=== PATIENT | female | born 1955 | race Caucasian/White ===

== ENCOUNTER 2016-07-12 12:17 | Emergency (ER) | payer BC ==
[2016-07-12 12:48] VITALS: BP 142/79
[2016-07-12] MEDS ORDERED: Tetan/Diph/Pertus SYR(Tdap)* 0.5 ML SYR(BOOSTRIX) use SYR IM ONE (12:56)
[2016-07-12] MEDS ORDERED: Lidocaine 1% MPF* 2 ML VIAL ONE (13:18)
[2016-07-12] MEDS ORDERED: Lidocaine 2% PF * 5 ML VIAL ONE (13:34)
--- NOTE | 2016-07-12 14:53 | RAD ---
HISTORY: Laceration to second digit of the right hand COMPARISONS: None VIEWS: 3, Frontal, lateral, and oblique views of the second digit of the right hand FINDINGS: BONE DENSITY: Normal. BONES: There is no displaced fracture. 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 ALIGNMENT: There is no dislocation. SOFT TISSUES: Unremarkable. OTHER FINDINGS: None. IMPRESSION: NO ACUTE OSSEOUS INJURY. IF SYMPTOMS PERSIST, RECOMMEND REPEAT IMAGING.
--- NOTE | 2016-08-02 08:17 | UC ---
I, Oh,Soohindio, scribed for Lian Hollis DO on 07/12/16 at 1331 . Upper Extremity HPI - HPI Summary HPI Summary: This 61 y/o female presents to [facility] for RUE #2 digit laceration since 1100 am this morning. Pt's unintentionally lacerated her finger with pruning villa. She decided to come in today when she became concerned with how deep the laceration was. The laceration is currently bandaged with mild to moderate amount of bleeding noted at the time of initial evaluation. Negative lightheadedness or dizziness. Pt denies any PMHx of HTN, DM, or any cardiac dz, and she also denies being on blood thinner. Pt is currently on Prempro and Zoloft. Pt took Oxycodone present at her home before coming in today for pain control. Pt reports positive cardiac dz in FHx to mother who is currently 96 y/ o and has pacemaker in place. Pt needs tetanus. - History of Current Complaint Chief Complaint: UCUpperExtremity Stated Complaint: FINGER LAC Time Seen by Provider: 07/12/16 13:16 Hx Obtained From: Patient ?: No Onset/Duration: Sudden Onset, Still Present Severity Initially: Moderate Severity Currently: Moderate Location Of Pain: Is Discrete @ - RUE #2 digit Aggravating Factor(s): Movement Alleviating Factor(s): Rest Associated Signs And Symptoms: Positive: Negative. Negative: Swelling, Redness , Bruising, Fever, Weakness, Numbness/Tingling Related History: Dominant Hand Right - Allergies/Home Medications Allergies/Adverse Reactions: Allergies Allergy/AdvReac Type Severity Reaction Status Date / Time No Known Allergies Allergy Verified 10/05/15 16:36 PMH/Surg Hx/FS Hx/Imm Hx Cardiovascular History Of: Denies: Hypertension, Pacemaker/ICD Psychological History Of: Reports: Depression Cancer History Of: Denies: Breast Cancer - Surgical History Surgical History: Yes Surgery Procedure, Year, and Place: LEFT HAND, 1984, [facility]. - Family History Known Family History: Positive: Cardiac Disease - mother who is currently on 96 y/o and has pacemaker Negative: Hypertension, Diabetes - Social History Occupation: Retired Lives: With Family Alcohol Use: Weekly Alcohol Amount: 3 glasses of wine/week Substance Use Type: None Smoking Status (MU): Never Smoked Tobacco Have You Smoked in the Last Year: No Review of Systems Constitutional: Negative Skin: Other - laceration on RUE #2 digit Eyes: Negative ENT: Negative Respiratory: Negative Cardiovascular: Negative Gastrointestinal: Negative Motor: Negative Neurovascular: Negative Musculoskeletal: Negative Neurological: Negative Psychological: Negative All Other Systems Reviewed And Are Negative: Yes Physical Exam Triage Information Reviewed: Yes Appearance: Well-Appearing, No Pain Distress, Well-Nourished Vital Signs: Initial Vital Signs Temp 98.1 F 07/12/16 12:45 Pulse 56 07/12/16 12:45 Resp 16 07/12/16 12:45 BP 142/79 07/12/16 12:45 Pulse Ox 98 07/12/16 12:45 Vital Signs Reviewed: Yes Eyes: Positive: Conjunctiva Clear. Negative: Discharge ENT: Positive: Hearing grossly normal. Negative: Muffled/hoarse voice Neck exam: Normal Neck: Positive: Supple Respiratory: Positive: Lungs clear, Normal breath sounds, No respiratory distress, No accessory muscle use Cardiovascular: Positive: RRR, No Murmur Musculoskeletal Exam: Normal Neurological: Positive: Alert, Muscle Tone Normal Psychological Exam: Normal Skin: Positive: Other - laceration on RUE #2 digit. Procedures - Laceration/Wound Repair 1 Location: upper extremity - RUE #2 digit Description: Linear Anesthesia: Digital, 1.0% Betadine Prep?: Yes Irrigated w/ Saline (ccs): 30 Laceration/Wound Explored: clean, no foreign body removed Closure: Single Layer Suture Type: Nylon Number of Sutures: 8 Layer Closure?: No Sterile Dressing Applied?: Yes Diagnostics - Radiology RUE finger Xray Interpretation: No Acute Changes Radiology Interpretation Completed By: Radiologist Re-Evaluation - Re-Evaluation First Eval Re-Evaluation Time: 14:47 Comment: MD in room to update on plan of care involving discharge and outpatient follow up. Pt is agreeable at this time. Upper Extremity Course/Dx - Differential Dx/Diagnosis Differential Diagnosis/HQI/PQRI: Laceration - abrasion, Other Provider Diagnoses: Finger laceration Discharge - Discharge Plan Condition: Stable Disposition: HOME Patient Education Materials: Diphtheria/Acellular Pertussis/Tetanus Booster Vaccine (Tdap) (Injection), Finger Laceration (ED) Referrals: Jessica Gao MD [Primary Care Provider] - If Needed () Theo Torres MD [Medical Doctor] - (Please be seen for suture removal in 7- 10 days. If you can not get in to see him, you can return here.) The documentation as recorded by the scribe, Soraya Manrique accurately reflects the service I personally performed and the decisions made by me, Lian Hollis DO.
== END 2016-07-12 14:51 | disposition home or self-care (01) ==
LOC: UCEAST 12:17
DX: S61.210A Laceration without foreign body of right index finger without damage to nail, initial encounter (principal); W27.8XXA Contact with other nonpowered hand tool, initial encounter; Y93.9 Activity, unspecified; Y92.9 Unspecified place or not applicable; Z23 Encounter for immunization
CPT/HCPCS: 12001; 73140; 90471; 90715; 99211; G0463

== ENCOUNTER 2016-09-12 06:10 | Inpatient (IN) | payer BC ==
[2016-09-12] MEDS ORDERED: Ondansetron INJ* 2 MG/ML VIAL ONE (07:01)
[2016-09-12] MEDS ORDERED: Ondansetron INJ* 2 MG/ML VIAL IV ONE (07:04)
[2016-09-12] MEDS ORDERED: NS 0.9% 1000 ML*IV.FLUID IV ONE (07:04)
[2016-09-12] MEDS ORDERED: NS 0.9% 1000 ML* 1,000 ML IV ONE (07:24)
[2016-09-12] MEDS ORDERED: Morphine INJ* 4 MG/ML 1 ML SYRINGE IV ONE (07:24)
[2016-09-12] MEDS ORDERED: Pantoprazole IV* 40 MG IV ONE (07:24)
[2016-09-12 07:35] LABS: Hematocrit 46 % (35-47); Hemoglobin 15.3 g/dl (12.0-16.0); Mean Corpuscular HGB Conc 33 g/dl (31-36); Mean Corpuscular Hemoglobin 29 pg (27-31); Mean Corpuscular Volume 86 fL (80-97); Mean Platelet Volume 10 um3 (7.4-10.4); Red Blood Count 5.34 10^6/ul (4.0-5.4); Red Cell Distribution Width 14 % (10.5-15); White Blood Count 14.2 10^3/ul (3.5-10.8)
[2016-09-12 07:46] LABS: ALT 21 U/L (7-52); AST 31 U/L (13-39); Albumin 4.7 g/dL (3.2-5.2); Alkaline Phosphatase 86 U/L (34-104); Amylase 59 U/L (29-103); Anion Gap 16 mmol/L (2-11); BUN/Creatinine Ratio 23.8 (8-20); Blood Urea Nitrogen 24 mg/dL (6-24); C Reactive Protein 9.08 mg/L (< 5.00); CO2 Carbon Dioxide 20 mmol/L (22-32); Calcium 10.2 mg/dL (8.6-10.3); Chloride 102 mmol/L (101-111); EGFR African American 71.4 (>60); EGFR Non-African American 55.5 (>60); Globulin 3.8 g/dL (2-4); Glucose 154 mg/dL (70-100); Lipase < 10 U/L (11.0-82.0); Magnesium 1.8 mg/dL (1.9-2.7); Potassium 3.2 mmol/L (3.5-5.0); Sodium 138 mmol/L (133-145); Total Protein 8.5 g/dL (6.4-8.9)
[2016-09-12 07:54] LABS: Troponin I 0.56 ng/mL (<0.04)
[2016-09-12] MEDS ORDERED: Aspirin TAB* 325 MG ONE (08:17)
[2016-09-12] MEDS ORDERED: Potassium Chlor TAB* 20 MEQ TAB.ER PO ONE (08:23)
[2016-09-12] MEDS ORDERED: Aspirin TAB* 325 MG PO ONE (08:48)
--- NOTE | 2016-09-12 08:54 | RAD ---
Indication: Epigastric pain. Real-time sonography of the right upper quadrant was performed. The liver is normal in size measuring 18 cm in length. No focal lesions are noted. No intrahepatic ductal dilatation is noted. The common duct measures up to 8 mm. The gallbladder demonstrates no gallstones, pericholecystic fluid or wall thickening. The right kidney measures 10.7 x 5.2 x 4.1 cm with no hydronephrosis. The pancreas head, neck and proximal body demonstrates no mass or pancreatic ductal dilatation. IMPRESSION: No evidence of cholelithiasis or biliary duct dilatation is noted.
[2016-09-12 08:56] LABS: Creatine Kinase 419 U/L (10-223)
--- NOTE | 2016-09-12 09:03 | CONSULT ---
Consult Consult: Surgery Consult Asked by Dr. Peck to evaluate a pt. with abd. pain. Ms. Collins is a 61 y.o. female who reports she began to feel nausea and epigastric pain 2 days ago. The pain has occured before to a lesser degree and, as in the past, this time seemed to be triggered by fatty foods. The pain subsided for a while but when it resumed it was associated with vomiting which was new. She describes the pain as stabbing and the nausea as unrelenting. She denies fever, but had some chills. She denies dysuria or vaginal discharge. She has not noticed any changed in her usually irregular bowel habits. She denies changes in the color of her urine or stool. She denies radiation of the pain. She has had extensive w/u in the past with neg finding. Most recently was evaluated a year ago. PMHx: denies Meds: zoloft and prempro NKDA ROS: neg. SH: neg. tob., occ. EtOH, neg. IVDA FH: sister and aunt had breast cancer; no FH gall bladder problems PE: general: WDWN female in NAD Vital Signs 09/12/16 09/12/16 09/12/16 06:15 07:40 07:49 Temperature 96.9 F Pulse Rate 62 Respiratory 18 20 Rate Blood Pressure 159/69 153/101 (mmHg) O2 Sat by Pulse 100 Oximetry 09/12/16 09/12/16 07:50 08:00 Temperature Pulse Rate 70 69 Respiratory Rate Blood Pressure 172/79 (mmHg) O2 Sat by Pulse 100 100 Oximetry HEENT: anicteric sclerae, dry oral mucosa, neg. cervical adenopathy lungs: clear to ausc. heart: reg. abd: diminished BS, soft, tender in epigastrium and RUQ without guarding or rebound, no masses felt. ext: neg. cyanosis, edema Laboratory Results - last 24 hr 09/12/16 09/12/16 09/12/16 06:55 06:55 06:55 WBC 14.2 H RBC 5.34 Hgb 15.3 Hct 46 MCV 86 MCH 29 MCHC 33 RDW 14 Plt Count 255 MPV 10 Neut % (Auto) 91.8 H Lymph % (Auto) 5.8 L Fleming % (Auto) 2.2 Eos % (Auto) 0 Baso % (Auto) 0.2 Absolute Neuts (auto) 13.0 H Absolute Lymphs (auto) 0.8 L Absolute Monos (auto) 0.3 Absolute Eos (auto) 0 Absolute Basos (auto) 0 Absolute Nucleated RBC 0.01 Nucleated RBC % 0 INR (Anticoag Therapy) 0.90 APTT 26.1 Sodium 138 Potassium 3.2 L Chloride 102 Carbon Dioxide 20 L Anion Gap 16 H BUN 24 Creatinine 1.01 H Est GFR ( Amer) 71.4 Est GFR (Non-Af Amer) 55.5 BUN/Creatinine Ratio 23.8 H Glucose 154 H Lactic Acid Calcium 10.2 Magnesium 1.8 L Total Bilirubin 0.80 AST 31 ALT 21 Alkaline Phosphatase 86 Total Creatine Kinase 419 H Troponin I 0.56 H* C-Reactive Protein 9.08 H Total Protein 8.5 Albumin 4.7 Globulin 3.8 Albumin/Globulin Ratio 1.2 Amylase 59 Lipase < 10 L 09/12/16 06:55 WBC RBC Hgb Hct MCV MCH MCHC RDW Plt Count MPV Neut % (Auto) Lymph % (Auto) Fleming % (Auto) Eos % (Auto) Baso % (Auto) Absolute Neuts (auto) Absolute Lymphs (auto) Absolute Monos (auto) Absolute Eos (auto) Absolute Basos (auto) Absolute Nucleated RBC Nucleated RBC % INR (Anticoag Therapy) APTT Sodium Potassium Chloride Carbon Dioxide Anion Gap BUN Creatinine Est GFR ( Amer) Est GFR (Non-Af Amer) BUN/Creatinine Ratio Glucose Lactic Acid 3.5 H* Calcium Magnesium Total Bilirubin AST ALT Alkaline Phosphatase Total Creatine Kinase Troponin I C-Reactive Protein Total Protein Albumin Globulin Albumin/Globulin Ratio Amylase Lipase A/P: Possible biliary colic, but agree that other sources of epigastric pain need to be evaluated too. Sono will help differentiate. Will follow Julius
[2016-09-12 09:17] LABS: Troponin I 0.63 ng/mL (<0.04)
--- NOTE | 2016-09-12 10:18 | RAD ---
Indication: Epigastric pain. Single frontal view of the chest performed at 0730 hours was reviewed. Comparison is made with previous exam dated November 14, 2015. No mediastinal shift is noted. Heart is of normal size and configuration. Lung maxwell appear clear. IMPRESSION: NO ACTIVE CARDIOPULMONARY DISEASE IS NOTED.
[2016-09-12] MEDS ORDERED: Heparin(*) 1000 UNIT/ML 10 ML VIAL CATH LAB IV ONE (11:11)
[2016-09-12] MEDS ORDERED: VERAPAMIL 2.5 MG/ML 4 ML VIAL ONE (11:11)
[2016-09-12] MEDS ORDERED: Midazolam* 1 MG/ML 5 ML VIAL (5 MG) ONE (11:11)
[2016-09-12] MEDS ORDERED: fentaNYL* 50 MCG/ML 2 ML VIAL (100 MCG VIAL) ONE (11:11)
[2016-09-12] MEDS ORDERED: Heparin 2 UNITS/ML IVPREMIX* 2,000 ML IV ONE (11:12)
[2016-09-12] MEDS ORDERED: Lidocaine 1% INJ* 10 MG/ML 30 ML SDV ONE (11:12)
[2016-09-12] MEDS ORDERED: nitroGLYCERIN DRIP* 250 ML ONE (11:12)
[2016-09-12] MEDS ORDERED: Iohexol 350 (CONTRAST) 200 ML MDV IV ONE (11:12)
[2016-09-12] MEDS ORDERED: NS 0.9% 1000 ML* 1,000 ML IV SCH ×2 (11:15→12:30)
--- NOTE | 2016-09-12 13:04 | CONSULT ---
Subjective Date of Service: 09/12/16 Interval History: 09/12/[address] Gao CC: Epigastric pain Reason for consult: Elevated troponin HPI Aleshia Collins is a 61 year old woman with a history of HTN had been on hctz in the past but stopped due to side effect (dizziness), dyslipidemia had been on a statin in the past. No prior history of [place]/CAD, CHF, valvular abnormalities or arrhythmias. No DM, family hx of CAD or tobacco use. Has had epigastric pain in the past intermittent. woke up with epigastric discomfort nausea/ vomiting lasted 8 hours. Then resolved. Woke up yesterday and felt fine. Had a light lunch. Walked some as she usually does daily without symptoms. Woke up this AM with epigastric pain, nausea, bile vomit. No radiation of pain, was partially reproducible but received morphine prior to when I arrived and currently pain free and not reproducible. No dyspnea, edema, orthopnea, pnd, lightheadedness, palpitations or syncope. US gallbladder reportedly normal. Cardiac enzymes elevated. Her Dr. Collins, orthopaedist is at bedside. Has received 325 mg PO aspirin Pmhx: HTN dyslipidemia Allergies: hctz causes dizziness one statin joint aches Soc Hx: no tobacco use, Fam Hx: mother scarlet fever, pacemaker is age 96 Medications Active Medications: Enoxaparin Sodium (Lovenox(*)) 40 mg SUBCUT Q24H [facility] Sodium Chloride (Ns 0.9% 1000 Ml*) 1,000 mls @ 100 mls/hr IV PER RATE BRET Sodium Chloride (Ns 0.9% 1000 Ml*) 1,000 mls @ 125 mls/hr IV .per rate [facility] Stop: 09/12/16 17:29 Pantoprazole Sodium (Protonix Iv*) 40 mg IV DAILY BRET Sertraline HCl (Zoloft*) 50 mg PO DAILY [facility] Home Medications: Estrogens/Medroxypr 0.625(NF) [Prempro] 1 tab PO DAILY 05/25/13 [History Confirmed 09/12/16] Sertraline HCl 50 mg PO DAILY 05/25/13 [History Confirmed 09/12/16] Review of Systems - Review of Systems Constitutional Symptoms: Negative: Weight Gain, Weight Loss, Weakness, Fatigue, Fever, Night Sweats Dermatology: Negative: Rash, Skin Lesions HEENT: Negative: Change in Hearing, Vertigo Eyes: Negative: Change in Vision, Double Vision Thyroid: Negative: Cold Intolerance, Heat Intolerance, Sweatiness, Tremor, Frequent Defecation, Constipation, Palpitations, Primary Hypothyroidism, Primary Hyperthyroidism, Weight Loss, Weight Gain, Change in Skin/Hair Pulmonary: Negative: Cough, Sputum, Hemoptysis, Wheezing, Respiratory Distress, Shortness of Breath, COPD Cardiology: Negative: Chest Pain, Shortness of Breath, Palpitations, Swelling of Ankles, Peripheral Vascular Dis, Edema, Faintness, Syncope, Orthopnea Gastroenterology: Positive: Abdominal Pain, Nausea, Vomiting, Indigestion Negative: Anorexia, Difficulty Swallowing, Heartburn, Constipation, Diarrhea Genital - Urinary: Negative: Dysuria, Hematuria, Polyuria Musculoskeletal: Negative: Joint Pain, Joint Stiffness, Arthritis, Osteoporosis, Low Back Pain Endocrinology: Negative: Thyroid Problems, Obesity, Diabetes, Hyperglycemia, Hypoglycemia, Polydipsia, Polyuria Hematologic/Lymphatic: Negative: Anemia, Easy Brusing, Hx Leukemia Neurology: Negative: Diplopia, Dizziness, Change in Balancing, Change in Coordination, Change in Memory, Change in Speech, Change in Sphincter Function Psychiatry: Negative: Adhedonia, Tearfulness, Unusual Fatigue, Hypomania, Eating Disorders Allergic/Immunologic: Negative: Hx Environmental Allergies, Hx Seasonal Allergies, Hx HIV, Immunocompromise Review of Systems Statement: All other review of systems negative, unless stated above. Objective Vital Signs: Temp Pulse Resp BP Pulse Ox 96.9 F 81 14 138/85 99 09/12/16 06:15 09/12/16 11:03 09/12/16 11:03 09/12/16 11:02 09/12/16 11:03 Appearance: nad, very pleasant Ears/Nose/Mouth/Throat: Clear Oropharnyx, Mucous Membranes Moist Neck: NL Appearance and Movements; NL JVP, Trachea Midline Respiratory: Symmetrical Chest Expansion and Respiratory Effort, Clear to Auscultation Cardiovascular: NL Sounds; No Murmurs; No JVD, RRR, No Edema Abdominal: NL Sounds; No Tenderness; No Distention Extremities: No Edema Skin: No Rash or Ulcers Neurological: Alert and Oriented x 3 Laboratory Results: 09/12/16 06:55 09/12/16 06:55 INR (Anticoag Therapy) 0.90 (0.89-1.11) 09/12/16 06:55 APTT 26.1 seconds (26.0-36.3) 09/12/16 06:55 Total Bilirubin 0.80 mg/dL (0.2-1.0) 09/12/16 06:55 AST 31 U/L (13-39) 09/12/16 06:55 ALT 21 U/L (7-52) 09/12/16 06:55 Alkaline Phosphatase 86 U/L (34-104) 09/12/16 06:55 CK-MB (CK-2) 11.9 ng/mL (0.6-6.3) H 09/12/16 08:42 Total Protein 8.5 g/dL (6.4-8.9) 09/12/16 06:55 Albumin 4.7 g/dL (3.2-5.2) 09/12/16 06:55 Globulin 3.8 g/dL (2-4) 09/12/16 06:55 Albumin/Globulin Ratio 1.2 (1-3) 09/12/16 06:55 09/12/16 09/12/16 06:55 08:42 Troponin I 0.56 H* 0.63 H* EKG Data: EKG 09/12/2016: Sinus rhythm 64 bpm, LAFB (unchanged from 09/2015) Assessment/Plan In summary, Aleshia Collins presents with an uncertain clinical presentation of epigastric pain, elevated troponin level and an abnormal baseline ekg without dynamic changes. US gallbladder reportedly normal. TTE limited bedside performed by myself mild LVH, normal LV size and function LVEF 55-60% with no wall motion abnormalities noted. - I think options are either a stress test or cardiac catheterization to further clarify ? cardiac etiology of presentation. After further discussing with Dr. Moreno, will plan for cardiac catheterization today. - Further recommendations pending test Thank you for allowing me to participate in the cardiovascular care of this patient. Please do not hesitate to contact me with questions or concerns.
[2016-09-12 14:58] LABS: Troponin I 0.55 ng/mL (<0.04)
[2016-09-12] MEDS ORDERED: Enoxaparin(*) 40 MG/0.4 ML SYR SUBCUT SCH (15:00)
[2016-09-12] MEDS ORDERED: CMC:Rosuvastatin (NF) 20 MG TAB PO SCH (17:00)
--- NOTE | 2016-09-12 18:01 | ED ---
Vladislav Escalante Billy, scribed for Hue Peck MD on 09/12/16 at 0726 . Abdominal Pain/Female - HPI Summary HPI Summary: Patient is a 61 year-old female coming to [facility] for evaluation of intermittent epigastric pain starting 2 days ago. However, yesterday, the symptoms subsided, and she was able to eat and drink fluids comfortably. She had Jell-O, fluids, and couscous and chicken for dinner at 2000 yesterday. She woke up at 0200 this morning with non-radiating epigastric pain, nausea, and vomiting. She has had 10 episodes of emesis since onset, which she describes as yellow in appearance; she denies any hematemesis or coffee ground emesis. She denies any diarrhea or chest pain, but she states that she "feels some heartburn" at this time in the ED. She reports epigastric pain severity as 7/10, and she states that her nausea is 9/10. She had a similar episode of epigastric pain in September 2015. Denies PSHx of the abdomen. Denies any history of angina or other cardiac history. - History of Current Complaint Chief Complaint: EDNauseaVomitDiarrh Stated Complaint: NAUSEA/VOMITING/CRAMPS Time Seen by Provider: 09/12/16 07:00 Hx Obtained From: Patient, Family/Retail Equipment Associate - , MD Onset/Duration: Gradual Onset, Lasting Days, Worse Since - 0200 today Timing: Hours Severity Initially: Moderate Severity Currently: Moderate Pain Intensity: 7 Pain Scale Used: 0-10 Numeric Location: Epigastric Radiates: No Character: Sharp Aggravating Factor(s): Nothing Alleviating Factor(s): Nothing Associated Signs and Symptoms: Positive: Nausea, Vomiting. Negative: Chest Pain , Diarrhea Allergies/Adverse Reactions: Allergies Allergy/AdvReac Type Severity Reaction Status Date / Time No Known Allergies Allergy Verified 09/12/16 06:18 PMH/Surg Hx/FS Hx/Imm Hx Cardiovascular History: Reports: Hx Hypercholesterolemia, Hx Hypertension Denies: Hx Angina, Hx Pacemaker/ICD, Other Cardiovascular Problems/Disorders Respiratory History: Denies: Other Respiratory Problems/Disorders GI History: Denies: Other GI Disorders Musculoskeletal History: Denies: Other Musculoskeletal History Sensory History: Denies: Hx Contacts or Glasses, Hx Hearing Aid Opthamlomology History: Denies: Hx Contacts or Glasses Neurological History: Denies: Other Neuro Impairments/Disorders Psychiatric History: Denies: Hx Panic Disorder - Surgical History Surgery Procedure, Year, and Place: LEFT HAND, 1985, [facility]. Hx Anesthesia Reactions: No - Immunization History Date of Tetanus Vaccine: Unk Date of Influenza Vaccine: Fall 2014 Infectious Disease History: No Infectious Disease History: Denies: Traveled Outside the [place] in Last 30 Days - Family History Known Family History: Positive: Cardiac Disease - mother who is currently on 96 y/o and has pacemaker Family History: Patient denies any family history of GI disorders. - Social History Lives: With Family Alcohol Use: Weekly Alcohol Amount: 3 glasses of wine/week Substance Use Type: Reports: None Smoking Status (MU): Never Smoked Tobacco Have You Smoked in the Last Year: No Review of Systems Positive: Fatigue Negative: Chest Pain Respiratory: Negative Positive: Abdominal Pain, Vomiting, Nausea. Negative: Diarrhea Musculoskeletal: Negative Skin: Negative Neurological: Negative Psychological: Normal All Other Systems Reviewed And Are Negative: Yes Physical Exam Triage Information Reviewed: Yes Vital Signs On Initial Exam: Initial Vitals Temp Pulse Resp BP Pulse Ox 96.9 F 62 18 159/69 100 09/12/16 06:15 09/12/16 06:15 09/12/16 06:15 09/12/16 06:15 09/12/16 06:15 Vital Signs Reviewed: Yes Appearance: Positive: Pain Distress - moderate Skin: Positive: Warm, Skin Color Reflects Adequate Perfusion, Dry Head/Face: Positive: Normal Head/Face Inspection Eyes: Positive: EOMI, Conjunctiva Clear ENT: Positive: Hearing grossly normal. Negative: Muffled/hoarse voice Neck: Positive: Supple, Nontender, No Lymphadenopathy Respiratory/Lung Sounds: Positive: Clear to Auscultation, Breath Sounds Present Cardiovascular: Positive: RRR, Pulses are Symmetrical in both Upper and Lower Extremities. Negative: Murmur Abdomen Description: Positive: No Organomegaly, Soft, Other: - Tender over the RUQ and epigastrium. Negative: CVA Tenderness (R), CVA Tenderness (L), Distended, Guarding, McBurney's Point Tenderness, Peritoneal Signs Bowel Sounds: Positive: Hypoactive Musculoskeletal: Positive: Strength/ROM Intact. Negative: Edema Left, Edema Right Neurological: Positive: Sensory/Motor Intact, Alert, Oriented to Person Place, Time. Negative: Facial Droop, Focal Deficit @, Slurred Speech Psychiatric: Positive: Normal, Affect/Mood Appropriate Diagnostics - Vital Signs Vital Signs Temp Pulse Resp BP Pulse Ox 09/12/16 06:15 96.9 F 62 18 159/69 100 - Laboratory Lab Results: Lab Results 09/12/16 09/12/16 09/12/16 Range/Units 06:55 06:55 06:55 WBC 14.2 H (3.5-10.8) 10^3/ul RBC 5.34 (4.0-5.4) 10^6/ul Hgb 15.3 (12.0-16.0) g/dl Hct 46 (35-47) % MCV 86 (80-97) fL MCH 29 (27-31) pg MCHC 33 (31-36) g/dl RDW 14 (10.5-15) % Plt Count 255 (150-450) 10^3/ul MPV 10 (7.4-10.4) um3 Neut % (Auto) 91.8 H (38-83) % Lymph % (Auto) 5.8 L (25-47) % [place] % (Auto) 2.2 (1-9) % Eos % (Auto) 0 (0-6) % Baso % (Auto) 0.2 (0-2) % Absolute Neuts (auto) 13.0 H (1.5-7.7) 10^3/ul Absolute Lymphs (auto) 0.8 L (1.0-4.8) 10^3/ul Absolute Monos (auto) 0.3 (0-0.8) 10^3/ul Absolute Eos (auto) 0 (0-0.6) 10^3/ul Absolute Basos (auto) 0 (0-0.2) 10^3/ul Absolute Nucleated RBC 0.01 10^3/ul Nucleated RBC % 0 INR (Anticoag Therapy) 0.90 (0.89-1.11) APTT 26.1 (26.0-36.3) seconds Sodium 138 (133-145) mmol/L Potassium 3.2 L (3.5-5.0) mmol/L Chloride 102 (101-111) mmol/L Carbon Dioxide 20 L (22-32) mmol/L Anion Gap 16 H (2-11) mmol/L BUN 24 (6-24) mg/dL Creatinine 1.01 H (0.51-0.95) mg/dL Est GFR ( Amer) 71.4 (>60) Est GFR (Non-Af Amer) 55.5 (>60) BUN/Creatinine Ratio 23.8 H (8-20) Glucose 154 H (70-100) mg/dL Lactic Acid (0.5-2.0) mmol/L Calcium 10.2 (8.6-10.3) mg/dL Magnesium 1.8 L (1.9-2.7) mg/dL Total Bilirubin 0.80 (0.2-1.0) mg/dL AST 31 (13-39) U/L ALT 21 (7-52) U/L Alkaline Phosphatase 86 (34-104) U/L Total Creatine Kinase 419 H (10-223) U/L CK-MB (CK-2) 16.0 H (0.6-6.3) ng/mL Troponin I 0.56 H* (<0.04) ng/mL C-Reactive Protein 9.08 H (< 5.00) mg/L Total Protein 8.5 (6.4-8.9) g/dL Albumin 4.7 (3.2-5.2) g/dL Globulin 3.8 (2-4) g/dL Albumin/Globulin Ratio 1.2 (1-3) Amylase 59 (29-103) U/L Lipase < 10 L (11.0-82.0) U/L 09/12/16 09/12/16 Range/Units 06:55 08:42 WBC (3.5-10.8) 10^3/ul RBC (4.0-5.4) 10^6/ul Hgb (12.0-16.0) g/dl Hct (35-47) % MCV (80-97) fL MCH (27-31) pg MCHC (31-36) g/dl RDW (10.5-15) % Plt Count (150-450) 10^3/ul MPV (7.4-10.4) um3 Neut % (Auto) (38-83) % Lymph % (Auto) (25-47) % [place] % (Auto) (1-9) % Eos % (Auto) (0-6) % Baso % (Auto) (0-2) % Absolute Neuts (auto) (1.5-7.7) 10^3/ul Absolute Lymphs (auto) (1.0-4.8) 10^3/ul Absolute Monos (auto) (0-0.8) 10^3/ul Absolute Eos (auto) (0-0.6) 10^3/ul Absolute Basos (auto) (0-0.2) 10^3/ul Absolute Nucleated RBC 10^3/ul Nucleated RBC % INR (Anticoag Therapy) (0.89-1.11) APTT (26.0-36.3) seconds Sodium (133-145) mmol/L Potassium (3.5-5.0) mmol/L Chloride (101-111) mmol/L Carbon Dioxide (22-32) mmol/L Anion Gap (2-11) mmol/L BUN (6-24) mg/dL Creatinine (0.51-0.95) mg/dL Est GFR ( Amer) (>60) Est GFR (Non-Af Amer) (>60) BUN/Creatinine Ratio (8-20) Glucose (70-100) mg/dL Lactic Acid 3.5 H* (0.5-2.0) mmol/L Calcium (8.6-10.3) mg/dL Magnesium (1.9-2.7) mg/dL Total Bilirubin (0.2-1.0) mg/dL AST (13-39) U/L ALT (7-52) U/L Alkaline Phosphatase (34-104) U/L Total Creatine Kinase 330 H (10-223) U/L CK-MB (CK-2) 11.9 H (0.6-6.3) ng/mL Troponin I 0.63 H* (<0.04) ng/mL C-Reactive Protein (< 5.00) mg/L Total Protein (6.4-8.9) g/dL Albumin (3.2-5.2) g/dL Globulin (2-4) g/dL Albumin/Globulin Ratio (1-3) Amylase (29-103) U/L Lipase (11.0-82.0) U/L Result Diagrams: 09/12/16 06:55 09/12/16 06:55 Lab Statement: Any lab studies that have been ordered have been reviewed, and results considered in the medical decision making process. - Radiology CXR Xray Interpretation: No Acute Changes Radiology Interpretation Completed By: Radiologist - Ultrasound No standard instances Ultrasound Interpretation Completed By: Radiologist - Gallbladder ultrasound: No evidence of cholelithiasis or biliary duct dilatation is noted. - EKG 0756 Cardiac Rate: NL - 64 bpm EKG Rhythm: Sinus Rhythm ST Segment: Non-Specific - Non-specific ST/T-wave changes. EKG Interpretation: Normal IV, AV, poor R-wave progression V1-V3. TWI in III. EKG Comparison: Other - T-wave inversion in III compared to EKG from 10/05/15, otherwise unchanged. 0901 Cardiac Rate: NL - 74 bpm EKG Rhythm: Sinus Rhythm ST Segment: Non-Specific - Non-specific ST/T-wave changes. EKG Interpretation: Normal IV, AV, poor R-wave progression V1-V3. TWI in III. EKG Comparison: No Significant Change - Compared to earlier EKG at 0756. Re-Evaluation - Re-Evaluation First Eval Re-Evaluation Time: 07:57 Change: Worse Comment: She now reports a stabbing, pressure chest pain. She also reports being short of breath earlier this week. Second Eval Re-Evaluation Time: 09:19 Comment: Lab values reviewed. Third Eval Re-Evaluation Time: 09:35 Comment: Dr. Moreno is examining the patient in the room. He explained the risks and benefits of cardiac catheterization to the patient. Abdominal Pain Fem Course/Dx - Course Course Of Treatment: Patient is a 61 year-old female coming to the ED for evaluation of epigastric pain, nausea, and vomiting. In the ED course, the patient was hydrated with IV fluids and given morphine for pain, Zofran for the nausea and vomiting, ASA, and Protonix. On re-evaluation, the patient describes stabbing, pressure chest pain. EKG shows NSR 64 bpm, poor R-wave progression, and non-specific ST/T-wave changes. Repeat EKG shows no changes. First troponin was 0.56. Repeat troponin 0.63. CXR shows no acute findings. Gallbladder ultrasound shows no evidence of cholelithiasis or biliary duct dilatation is noted. Patient care was discussed with Dr. Lund and Dr. Carroll. Patient was admitted to hospitalist services for further care and management. - Diagnoses Differential Diagnosis: Positive: ACS, Gall Bladder Disease, [place], Pancreatitis Provider Diagnoses: Epigastric abdominal pain, Chest pain, Elevated troponin - Provider Notifications Discussed Care Of Patient With: Dr. Lund (cardiology) at 0812. Dr. Carroll ( hospitalist) at 0930. Instructed by Provider To: MD Will See In ED - Critical Care Time Critical Care Time: 30-74 min Discharge - Discharge Plan Condition: Stable Disposition: HOME The documentation as recorded by the Vladislav velez Billy accurately reflects the service I personally performed and the decisions made by , Hue Peck MD.
--- NOTE | 2016-09-12 21:12 | HP ---
HISTORY AND PHYSICAL: DATE OF ADMISSION: 09/12/16 PCP: Dr. Gao. CHIEF COMPLAINT: Epigastric pain. HISTORY OF PRESENT ILLNESS: Ms. Collins is a pleasant 61-year-old female with the past medical history of depression and IBS who presents to the hospital with severe epigastric pain, nausea, and vomiting. The patient states that her symptoms initially began 2 days ago. in the morning, she developed this epigastric pain which persisted all day. She had decreased appetite over the course of the day, although was still taking some fluids. Around 3:30 in the afternoon that day, she began to have nausea and vomiting that was mostly bile colored, no blood present. She states this continued for about 8 hours or into the night and then seemed to have resolved. She thought perhaps she had the flu. Yesterday she was feeling okay, did not have any recurrence of the pain, although she did feel fatigued. She drank fluids throughout the day and went on a walk. She had a normal dinner and went to sleep. This morning around 2 a.m. the pain recurred, woke her out of sleep. She had significant nausea and dry heaves. Due to her ongoing symptoms, she came to the hospital for further evaluation. The patient states that she has had history of this sort of pain in the past which has been going on for years. She states she will have 1 to 2 episodes a year which usually resolve after a day. She states the pain is sharp, sometimes positional. She can usually feel her stomach gurgling when she has these episodes; however, she states in the past she has never had any vomiting associated with this. She has noted that over the past week or so, she has been having a lot more rich food which she usually tries to avoid due to the holidays unless there is family visiting. She has a history of irritable bowel syndrome and goes through bouts of constipation and diarrhea. She states that she has had some mild constipation over the past few days but her last bowel movement was either yesterday or the day before. She denies any fever or chills. No URI symptoms. No chest pain. She states she was at yoga the other night and while doing a twisting pose, she had some shortness of breath but nothing other than that. No significant weight loss. In the emergency department, the patient was found to have an elevated troponin of 0.56 along with a lactic acidosis and an elevated white blood cell count. Social service was consulted to admit the patient. PAST MEDICAL HISTORY: 1. IBS. 2. Depression. PAST SURGICAL HISTORY: Hand surgery. HOME MEDICATIONS: 1. Zoloft 50 mg by mouth daily. 2. Prempro 1 tablet by mouth daily. ALLERGIES: The patient has no known drug allergies. FAMILY HISTORY: Significant for mother with CAD and hypertension. Sister with breast cancer and aunt with breast cancer and another sister with Graves disease. SOCIAL HISTORY: The patient has never smoked cigarettes. She has a glass of wine a few times a week. No illicit drug use. Lives at home with her , Dr. Theo Collins, and 3 dogs. REVIEW OF SYSTEMS: A 12-point review of systems is negative except for that as noted in the HPI. PHYSICAL EXAMINATION GENERAL: The patient is a middle-aged female, lying in bed in no apparent distress. VITAL SIGNS: On admission, temperature 96.7, heart rate of 62, respiratory rate 18, O2 saturation 100% on room air, blood pressure 159/69. HEENT: Pupils equal, round and reactive to light and accommodation. Anicteric sclerae. Moist mucous membranes. NECK: No cervical adenopathy. LUNGS: Clear to auscultation bilaterally. No wheezes, rales or rhonchi. CARDIOVASCULAR: Regular rate and rhythm. S1, S2 present. No murmurs, gallops or rubs. ABDOMEN: Soft, nondistended. Mild tenderness to palpation in the epigastric area and suprapubic area. Bowel sounds positive. No rebound or guarding. EXTREMITIES: No cyanosis, clubbing, or edema. NEURO: The patient is alert and oriented x3. No focal neurological deficits. SKIN: Warm, dry and well perfused. LABS AND DIAGNOSTICS: White blood cell count of 14.2, hemoglobin of 15.3, hematocrit of 46, platelets of 255, 91%, neutrophils. INR is 0.90. Sodium of 138, potassium of 3.2, chloride of 102, carbon dioxide of 20, BUN of 24, creatinine of 1.01, glucose of 154, lactic acid of 3.5, magnesium of 1.8. LFTs within normal limits. CK 419 followed by 330. CK-MB 16 followed by 11.9. Troponin 0.56 followed by 0.63. CRP of 9. Lipase is less than 10. EKG personally reviewed shows normal sinus rhythm, left anterior fascicular block. Chest x-ray personally reviewed shows no acute disease. Gallbladder ultrasound showed no evidence of cholelithiasis or biliary ductal dilatation. ASSESSMENT AND PLAN: Epigastric pain, nausea and vomiting with associated troponin elevation and lactic acidosis in a 61-year-old female with the past medical history of depression, irritable bowel syndrome and infrequent episodes of mid abdominal pain. 1. Troponin elevation. Appreciate Cardiology assistance. Could possibly be due to acute coronary syndrome as it seems like this episode is somewhat different than previous episodes. Dr. Lund and Dr. Moreno spoke at length with the patient and her and decision has been made to proceed with the cardiac catheterization today. The patient will be going for this soon to see if there is any underlying coronary artery disease that may be responsible for her symptoms. She has received 325 mg of aspirin. Can determine further cardiac medications after the catheterization. We will continue to trend her troponins to peak. Monitor the patient on telemetry. 2. Epigastric pain, nausea and vomiting. We will need to continue to work this up if this is a noncardiac cause. The patient's LFTs are within normal limits and her gallbladder ultrasound is normal. Her lipase is negative. It seems unlikely to be pancreatitis. This could possibly be peptic ulcer disease. The patient states she has never had an endoscopy in the past. We will continue with Protonix for now and see how the patient is feeling tomorrow. Consider possible GI consult. 3. Lactic acidosis. The patient received a liter of IV fluids in the emergency department. We will continue at 100 cc per hour. Recheck lactic acid this afternoon. 4. Depression. Continue home Zoloft. 5. DVT prophylaxis. Lovenox subcu. 6. Code status. The patient is a full code. TIME SPENT: Total time spent on this admission, 45 minutes, with over half the time spent [id number] with the patient, counseling, and coordinating care. CC: Dr. Gao * [id number]/[facility] #: [id number] MTDD
--- NOTE | 2016-09-13 | CATH ---
CARDIAC CATHETERIZATION REPORT: DATE OF PROCEDURE: 09/12/16 INDICATION: The patient with epigastric discomfort and vomiting episodes with abnormal cardiac enzymes with subtle ST-T wave abnormalities in early precordial leads, rule out presence of underlying coronary artery disease. PROCEDURE: Coronary arteriography, left heart catheterization, left ventriculography. DESCRIPTION OF PROCEDURE: The patient was interviewed and examined in the emergency room, where the risks and benefits were explained to both her and her . She understood them and wished to proceed. The patient was brought to the cardiovascular laboratory, where a formal time-out was performed. The patient was prepped and draped in the sterile fashion. Right coronary was anesthetized with 1% lidocaine. Right femoral artery was cannulated and a 5- [place] introducer was placed. Coronary arteriography was performed using a 5- [place] 4-Norberto left coronary catheter and 5-[place] 4-Norberto right coronary catheter. Central aortic pressure was recorded using an angled pigtail catheter , advanced to the ascending aorta. The catheter was then passed across the aortic valve to the left ventricle, where left ventricular pressure was recorded. Left ventriculography was performed using a total of 24 cc of Omnipaque dye at a rate of 12 cc per second. The catheter was pulled back across the aortic valve to recheck gradient. Following this, the catheter and sheath were removed and hemostasis was obtained with local pressure. The total contrast used was 70 cc of Omnipaque dye. The radiation exposure included 3.7 minutes of fluoro time. The air kerma radiation was 317 milligray. The DAP radiation was 1945 microgray per meter square. RESULTS: HEMODYNAMIC DATA: Left heart catheterization - ascending aortic pressure recorded at 144/73 with a mean of 105. Left ventricular pressure 145 over left ventricular end- diastolic pressure of 7. LEFT VENTRICULOGRAPHY: Performed in the PROCTOR projection revealed fairly symmetrical left ventricular systolic function. There was no significant focal wall motion abnormalities. The left ventricular ejection fraction was estimated at 50% to 55%. CORONARY ARTERIOGRAPHY: A. Left coronary artery: 1. Left main - short in nature and widely patent. 2. Left anterior descending artery - there was mild 25% proximal left anterior descending artery. The caliber of the [id number] left anterior descending artery was somewhat small in nature. There was mild 30% narrowing within the mid segment of this vessel. No focal significant stenosis was seen. The LAD supplied a small bifurcating first diagonal branch, followed by a larger second diagonal branch. The first diagonal branch was small in caliber. No disease was seen in the second diagonal branch. 3. Circumflex artery - a non-dominant vessel supplying a thin high first obtuse marginal branch followed by multiple obtuse marginal branches traversing across the posterior to low posterolateral wall, ending in two smaller low posterior left ventricular branches. There was no focal narrowing seen. B. Right coronary artery - a dominant vessel supplying the PDA and two posterior left ventricular branches. There was a mild 25% to 30% narrowing seen in the proximal portion with no other stenosis seen throughout the course of the vessel. OVERALL ASSESSMENT: Mild coronary artery disease as described above with low normal left ventricular systolic function. No evidence of critical stenosis to explain elevated troponin and total CPK and MB on the basis of critical coronary artery disease. The patient had been on statin therapy in the past and I would recommend reinstituting that for control of progression of atherosclerosis within the coronary artery system as described above. The patient will have a followup wound check within the next 7 to 10 days. CC: Jessica Gao MD; Morgan Lund DO; Mara Gruber MD * [id number]/[facility] #: [id number] MTDD
[2016-09-13] MEDS ORDERED: diPHENhydraMINE PO* 50 MG PO PRN (00:27)
[2016-09-13 06:42] LABS: Hematocrit 38 % (35-47); Hemoglobin 12.6 g/dl (12.0-16.0); Mean Corpuscular HGB Conc 33 g/dl (31-36); Mean Corpuscular Hemoglobin 29 pg (27-31); Mean Corpuscular Volume 87 fL (80-97); Mean Platelet Volume 9 um3 (7.4-10.4); Red Cell Distribution Width 14 % (10.5-15); White Blood Count 9.1 10^3/ul (3.5-10.8)
[2016-09-13 06:58] LABS: Albumin 3.4 g/dL (3.2-5.2); BUN/Creatinine Ratio 20.8 (8-20); Calcium 8.5 mg/dL (8.6-10.3); EGFR African American 97.7 (>60); Globulin 2.7 g/dL (2-4); Potassium 3.5 mmol/L (3.5-5.0); Total Bilirubin 0.6 mg/dL (0.2-1.0); Total Protein 6.1 g/dL (6.4-8.9)
--- NOTE | 2016-09-13 07:18 | DCNOTE ---
Patient seen this morning. Had some mild abdominal pain overnight but not as bad as previous. No nausea or vomiting. No chest pain, no SOB. Cath site not bothersome. On exam, RRR, s1 and s2 present, no m/g/r, abd soft, NTND, BS+, no LE edema, R groin site c/d/i Will discharge home today on PPI. Patient would like to follow-up with PCP regarding further work-up.
--- NOTE | 2016-09-13 08:23 | PN ---
Subjective Date of Service: 09/13/16 Interval History: f/u elevated troponin cardiac catheterization yesterday non-obstructive CAD no chest pain still with intermittent epigastric discomfort no groin pain or leg pain or sensation changes Medications Active Medications: Diphenhydramine HCl (Benadryl Po*) 50 mg PO BEDTIME PRN PRN Reason: INSOMNIA Last Admin: 09/13/16 00:42 Dose: 50 mg Enoxaparin Sodium (Lovenox(*)) 40 mg SUBCUT Q24H [facility] Last Admin: 09/12/16 15:06 Dose: 40 mg Pantoprazole Sodium (Protonix Iv*) 40 mg IV DAILY [facility] Rosuvastatin Calcium (Crestor (Nf)) 10 mg PO 1700 [facility] Last Admin: 09/12/16 18:20 Dose: 10 mg Sertraline HCl (Zoloft*) 50 mg PO DAILY [facility] Objective Vital Signs: Temp Pulse Resp BP Pulse Ox 97.9 F 58 17 113/72 95 09/13/16 07:54 09/13/16 06:00 09/13/16 06:00 09/13/16 06:00 09/13/16 06:00 Appearance: nad, very pleasant Ears/Nose/Mouth/Throat: Clear Oropharnyx, Mucous Membranes Moist Neck: NL Appearance and Movements; NL JVP, Trachea Midline Respiratory: Symmetrical Chest Expansion and Respiratory Effort, Clear to Auscultation Cardiovascular: NL Sounds; No Murmurs; No JVD, RRR, No Edema Abdominal: NL Sounds; No Tenderness; No Distention Extremities: No Edema, - - right groin puncture site intact, no pain, swelling or bruit, femoral pulse 2/4 Skin: No Rash or Ulcers Neurological: Alert and Oriented x 3 Laboratory Results: 09/13/16 06:30 09/13/16 06:30 INR (Anticoag Therapy) 0.90 (0.89-1.11) 09/12/16 06:55 APTT 26.1 seconds (26.0-36.3) 09/12/16 06:55 Total Bilirubin 0.60 mg/dL (0.2-1.0) 09/13/16 06:30 AST 16 U/L (13-39) 09/13/16 06:30 ALT 13 U/L (7-52) 09/13/16 06:30 Alkaline Phosphatase 57 U/L (34-104) 09/13/16 06:30 CK-MB (CK-2) 7.0 ng/mL (0.6-6.3) H 09/12/16 14:25 Total Protein 6.1 g/dL (6.4-8.9) L 09/13/16 06:30 Albumin 3.4 g/dL (3.2-5.2) 09/13/16 06:30 Globulin 2.7 g/dL (2-4) 09/13/16 06:30 Albumin/Globulin Ratio 1.3 (1-3) 09/13/16 06:30 09/12/16 14:25 Troponin I 0.55 H* EKG Data: EKG 09/12/2016: Sinus rhythm 64 bpm, LAFB (unchanged from 09/2015) Assessment/Plan In summary, Aleshia Collins presents with an uncertain clinical presentation of epigastric pain, elevated troponin level and an abnormal baseline ekg without dynamic changes. US gallbladder normal. TTE limited bedside performed by myself mild LVH, normal LV size and function LVEF 55-60% with no wall motion abnormalities noted. Cardiac catheterization with non-obstructive CAD. prior LDL > 140, start crestor 10 mg PO daily sent to pharmacy Thank you for allowing me to participate in the cardiovascular care of this patient. Please do not hesitate to contact me with questions or concerns.
[2016-09-13] MEDS ORDERED: Sertraline* 50 MG TAB PO SCH (09:00)
[2016-09-13] MEDS ORDERED: Pantoprazole IV* 40 MG IV SCH (09:00)
[2016-09-13 09:07] VITALS: BP 142/76
--- NOTE | 2016-09-14 03:03 | DS ---
DISCHARGE SUMMARY: DATE OF ADMISSION: 09/12/16 DATE OF DISCHARGE: 09/13/16 PRIMARY CARE PHYSICIAN: Jessica Gao MD PRINCIPAL DISCHARGE DIAGNOSES: 1. Nausea. 2. Vomiting. 3. Abdominal pain. 4. Elevated troponin. SECONDARY DIAGNOSES: 1. Irritable bowel syndrome. 2. Depression. DISCHARGE MEDICATION REGIMEN: 1. Omeprazole 20 mg by mouth daily. 2. Sertraline 50 mg by mouth daily. 3. Prempro 1 tablet by mouth daily. 4. Crestor 10 mg by mouth daily. STUDIES DONE DURING HOSPITALIZATION: 1. Chest x-ray, impression: No active disease is noted. 2. Gallbladder ultrasound, impression: No evidence of cholelithiasis or biliary duct dilatation is noted. 3. Cardiac catheterization: Mild 25% proximal stenosis of the LAD, 30% narrowing in the midsegment, widely patent left main, no narrowing of the circumflex, and mild 25% to 30% narrowing of the proximal right coronary artery. CONSULTANTS DURING HOSPITALIZATION: 1. Mara Gruber MD, Surgery. 2. Luiz Moreno MD, Cardiology. 3. Morgan Lund DO, Cardiology. HISTORY OF PRESENT ILLNESS AND HOSPITAL SUMMARY: Please see my full history and physical for full details. Briefly, Ms. Collins is a pleasant 61-year-old female with a past medical history who presented to the hospital with severe epigastric pain, nausea, and vomiting. The patient has had these symptoms in the past; however, they are usually not associated with emesis. Due to the pain , she came to the hospital for further evaluation and was instantly noted that her troponin was elevated at 0.56 and peaked at 0.63. She also had a mild lactic acidosis. Initially surgery was consulted. The patient underwent a gallbladder ultrasound that was unremarkable. Cardiology was consulted and the decision was made to proceed with cardiac catheterization, which was done and as above showed no obstructive coronary disease. The patient's symptoms resolved in the emergency department after she received morphine. She tolerated the diet that evening. Overnight, she had some mild recurrence of the abdominal pain, but nowhere near or as worse as prior previously. She will be sent home on a PPI and Cardiology recommended restarting a statin, which was also sent to her pharmacy. The patient would like to follow up with her PCP, Dr. Gao, to coordinate further workup with this as an outpatient. TIME SPENT: Total time spent on this discharge, 35 minutes. This is a summary of the hospitalization, please see the full medical record for further details. CC: Jessica Gao MD* [id number]/CPS #: [id number] MTDD
== END 2016-09-13 09:30 | disposition home or self-care (01) | DRG 251 ==
LOC: ED 06:10 → ICU 09:36
PROVIDERS: ADMIT Hospitalist; ATTEND Hospitalist
PROC: 4A12XSH Monitoring of Cardiac Vascular Perfusion using Indocyanine Green Dye, External Approach (ICD-10-PCS; 2016-09-12)
PROC: B211YZZ Fluoroscopy of Multiple Coronary Arteries using Other Contrast (ICD-10-PCS; 2016-09-12)
PROC: B215YZZ Fluoroscopy of Left Heart using Other Contrast (ICD-10-PCS; 2016-09-12)
PROC: 4A023N7 Measurement of Cardiac Sampling and Pressure, Left Heart, Percutaneous Approach (ICD-10-PCS; principal; 2016-09-12 11:00)
DX: R10.13 Epigastric pain (principal); E87.2 Acidosis; I11.9 Hypertensive heart disease without heart failure; R74.8 Abnormal levels of other serum enzymes; K58.9 Irritable bowel syndrome, unspecified; F32.9 Major depressive disorder, single episode, unspecified; I25.10 Atherosclerotic heart disease of native coronary artery without angina pectoris; E78.5 Hyperlipidemia, unspecified; Z79.899 Other long term (current) drug therapy; Z82.49 Family history of ischemic heart disease and other diseases of the circulatory system; Z80.3 Family history of malignant neoplasm of breast
CPT/HCPCS: 36415; 71010; 76705; 80053; 82150; 82550; 82553; 83605; 83690; 83735; 84484; 85025; 85610; 85730; 86140; 87641; 93005; 93458; A9270-GY; C1887; J1644; J1650; J2001; J2250; J2270; J2405; J3010